=== PATIENT | female | born 1960 | race Two or more races ===

== ENCOUNTER 2021-03-09 23:41 | Emergency (ER) | payer OTHER ==
[~2021-03-09] VITALS: Ht 139.7 cm; Wt 62.6 kg
[2021-03-10 03:30] VITALS: BP 138/79
== END 2021-03-10 06:57 | disposition home or self-care (01) ==
LOC: ER 23:41 → EDBD 23:41 → ER 03-10 06:57
DX: S29.019A Strain of muscle and tendon of unspecified wall of thorax, initial encounter (principal); S93.409A Sprain of unspecified ligament of unspecified ankle, initial encounter; S00.83XA Contusion of other part of head, initial encounter; V43.62XA Car passenger injured in collision with other type car in traffic accident, initial encounter; Y93.89 Activity, other specified; Y92.410 Unspecified street and highway as the place of occurrence of the external cause; Y99.8 Other external cause status
CPT/HCPCS: 70486; 71250; 72070; 73610; 93005; 99285; J7030